=== PATIENT | male | born 1945 | race Caucasian/White ===

== ENCOUNTER 2016-10-28 11:56 | Emergency (ER) | payer MEDICARE, BC ==
[2016-10-28 14:05] LABS: Hematocrit 33.7 % (42.0-52.0); Hemoglobin 11.6 gm/dL (13.5-18.0); Mean Cell Volume 91.8 fl (78-100); Mean Corpuscular Hemoglobin 31.6 pg (27-31); Mean Corpuscular Hgb Conc 34.4 g/dl (32-36); Mean Platelet Volume 9.9 fl (6.0-9.5); Neutrophil # 16.8 K/mm3 (1.3-6.0); Neutrophil % 85.4 % (42-75.0); Platelet Count 289 K/mm3 (150-450); Red Blood Count 3.67 M/mm3 (4.7-6.0); White Blood Count 19.7 K/mm3 (4.0-10.5)
[2016-10-28 14:24] LABS: Albumin * 3.4 gm/dl (3.4-5.0); Anion Gap 9.2 mmol/L (6.8-13.8); BUN/Creatinine Ratio 28.9 (9.0-21.6); Bilirubin, Total 0.4 mg/dL (0.0-1.1); Ca. Corrected For Albumin 8.9 mg/dL (8.4-10.2); Calcium * 8.7 mg/dL (7.9-10.9); Carbon Dioxide 32.1 mmol/L (24-32.6); Potassium 4.3 mmol/L (3.4-4.6); Total Protein 6.4 gm/dL (6.2-8.2); Troponin I 0.02 ng/ml (0.00-0.10)
[2016-10-28] MEDS ORDERED: NORMAL SALINE 1,000 ML IV ONE (14:24)
--- NOTE | 2016-10-28 14:26 | ERNOTE ---
Syncope ER HPI Date of Service: 10/28/16 Stated Complaint: DIZZINESS, FALL Time Seen by Provider: 10/28/16 13:46 Source: patient, family Exam Limitations: no limitations Immunizations: IMMUNIZATION HX History of Influenza Vaccine Yes Hx Pneumococcal Vaccination Yes Allergies/Adverse Reactions: Allergies roflumilast [From Dalires] Allergy (Severe, Verified 10/28/16 12:22) Home Medications: HOME MEDICATIONS Aspirin [Aspirin Chewable] 81 mg PO DAILY 04/05/13 [Last Taken Unknown] Calcium Carbonate [Tums] 500 mg PO BID 04/05/13 [Last Taken Unknown] Carvedilol [Coreg] 12.5 mg PO BID 04/05/13 [Last Taken Unknown] Fluticasone/Salmeterol [Advair 500-50 Diskus] 1 each IH BID 04/05/13 [Last Taken Unknown] Folic Acid 1 mg PO DAILY 04/05/13 [Last Taken Unknown] Furosemide [Lasix] 40 mg PO DAILY 04/05/13 [Last Taken Unknown] Lisinopril [Zestril] 5 mg PO DAILY 04/05/13 [Last Taken Unknown] Spironolactone [Aldactone] 12.5 mg PO BID@0900,1700 04/05/13 [Last Taken Unknown ] Tiotropium Paulina [Spiriva] 18 mcg IH DAILY 04/05/13 [Last Taken Unknown] Vitamin D2 1.25 mg PO Q7D 04/05/13 [Last Taken Unknown] Cefuroxime Axetil [Ceftin] 500 mg PO BID 10/28/16 [Last Taken Unknown] Dicyclomine HCl [Bentyl] 20 mg PO QID 10/28/16 [Last Taken Unknown] HYDROcodone/ACETAMINOPHEN [Eastern 5-325] 1 - 2 tab PO QID PRN 10/28/16 [Last Taken Unknown] Varenicline Tartrate [Chantix] 1 mg PO BID 10/28/16 [Last Taken Unknown] predniSONE [Prednisone] 1.5 tab PO BID 10/28/16 [Last Taken Unknown] - History of Present Illness Narrative: Went out to his mailbox today. When he got there, developed a balance coordination problem, more like things moving around than anything else. Lasted about a minute. He went to the ground. On the ground, it didn't bother him. He stayed down for about 15 minutes, hoping it wouldn't come back. No problem before or since. No tinnitus. No hearing loss. Prior Episodes: Present: no prior history, single episode today Symptoms prior to episode: Present: none Activity at time of episode: Present: standing Character of event: Present: no loss of consciousness Location of Injury: Present: none Current Symptoms: Present: back to normal Prior Treament: Reports: recently seen, treated by physician, currently on antibiotics Review of Systems - Review of Systems Constitutional: Present: no symptoms reported EYE: Present: no symptoms reported ENT: Present: no symptoms reported Respiratory: Present: no symptoms reported Cardiology: Present: no symptoms reported Gastrointestinal/Abdominal: Present: no symptoms reported Genitourinary: Present: no symptoms reported Musculoskeletal: Present: no symptoms reported Skin: Present: no symptoms reported Neurological: Present: dizziness/light-headedness Endocrine: Present: no symptoms reported Hematologic/Lymphatic: Present: no symptoms reported Psych: Present: no symptoms reported All Other Systems: All systems neg except as marked - Patient's Past Medical History Patient History - Medical: No pertinent hx Patient History - Cardiac/Respiratory: Bronchitis, Cardiomyopathy, CHF, COPD Patient History - Cancer: No Hx of Cancer Patient History - Surgical Procedures: Appendectomy, Other - Social History Smoking Status: Former smoker Have you smoked in the past 12 months: Yes - Immunizations Hx Pneumococcal Vaccination: Yes History of Influenza Vaccine: Yes Physical Exam - Physical Exam General Appearance: Present: wd/wn, alert, no apparent distress Eye Exam: Normal inspection: bilateral, PERRL: bilateral, EOMI: bilateral Ears, Nose, Throat: Present: normal ENT inspection, hearing grossly normal, cerumen impaction - bilateral Neck: Present: normal inspection, nontender Respiratory: Present: lungs clear, decreased breath sounds Cardiovascular/Chest: Present: regular rate, rhythm, no murmur Gastrointestinal/Abdominal: Present: normal bowel sounds, nontender, nondistended, soft, no organomegaly Back Exam: Present: normal inspection, no CVA tenderness, no vertebral tenderness Extremity Exam: Present: normal inspection, no edema Skin Exam: Present: normal color, warm/dry ED Progress - Results and Orders Patient's Lab Results:: I have reviewed the patient's lab results. - Vital Signs Patient's Vital Signs:: I have reviewed the patient's vital signs. Vital Signs: Vital Signs 10/28/16 10/28/16 10/28/16 12:17 14:16 14:21 Temperature 34.9 C L Pulse Rate 53 L 60 56 L Respiratory 14 Rate Blood Pressure 120/63 88/47 O2 Sat by Pulse 95 Oximetry - EKG EKG read: Interp. by me - sinus bradycardia, intraventricular conduction delay, poor anterior r waves. 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 - Progress/Reassessment Chief Complaint: Syncopal Episode Progress Note-Subjective: 10/28/16 16:55 wbc elevated due to the steroids he's taking for his COPD exacerbation Departure Clinical Impression: Vertigo Hypotension Qualifiers: Hypotension type: other hypotension type Qualified Code(s): I95.89 - Other hypotension - Departure Disposition: Home self-care Condition: Good Instructions: Vertigo, [id number] Additional Instructions: keep your followup appt with me. Referrals: Dequan Rivera MD [Primary Care Provider] -
--- OUTSIDE RECORDS SUMMARY | 2016-10-28 15:07 | XMS REPORT | Continuity of Care Document ---
:1945 Author Organization [email or web address] [place] [address] Care Team Providers Name Role Phone Unavailable Primary Care Provider Unavailable Source Comments This disclosure is being made pursuant to the ShopReply program and maynot contain all information available regarding this patient.[email or web address] Active Allergies and Adverse Reactions Not on File Current Medications Be aware that medications may not be up to date as of this document. Alwaysverify current medications with the patient. Not on file Active Problems Not on file Social History Tobacco Use Types Packs/Day Years Used Date Never Assessed Plan of Care Health Maintenance Due Date Last Done Comments Retired-Pertussis Vaccine Adult 1964 Retired-Tetanus Vaccine Adult 1964 Colonoscopy 1994 Well Adult Visit 1994 Zoster Vaccine 60+ 2004 Retired-Pneumococcal 23 Vaccine-65+ yo 2009 Retired-INFLUENZA VACCINE 05/10/2015 Results from Last 3 Months Not on file
--- OUTSIDE RECORDS SUMMARY | 2016-10-28 15:07 | XMS REPORT | Continuity of Care Document ---
:1945 Author Organization [facility] ([facility]) Address [address] [place] [address] Phone [phone] Care Team Providers Name Role Phone Dequan Fields Primary Care Provider [phone] Source Comments This disclosure is being made pursuant to the Care Everywhere program, applicable federal and state laws, and may not contain all informaitonavailable regarding this patient.[facility] ([facility]) Active Allergies and Adverse Reactions Allergen Noted Date Severity Reactions Comments Roflumilast 03/22/2015 Unknown Current Medications Prescription Sig. Disp. Refills Start Date End Date Status tiotropium (SPIRIVA 18 mcg daily. Active WITH HANDIHALER) 18 mcg inhalation capsule MULTIVITAMINS take 1 Tab by mouth Active (MULTIVITAMIN PO) daily. folic acid 1 mg tablet Take 1 mg by mouth 03/10/2015 Active daily LISINOPRIL 5 mg tablet Take 5 mg by mouth 03/10/2015 Active daily SPIRONOLACTONE 25 mg Take 25 mg by mouth 03/10/2015 Active tablet daily carvedilol 12.5 mg Take 12.5 mg by mouth Active tablet 2 times daily with meals pantoprazole 40 mg EC Take 40 mg by mouth 11 09/07/2015 Active tablet daily. furosemide 40 mg Take 80 mg by mouth 11 09/07/2015 Active tablet daily. VITAMIN D2 50,000 unit 11 09/07/2015 Active capsule SYMBICORT 160-4.5 11 09/07/2015 Active mcg/Actuation inhaler atorvastatin 40 mg 40 mg daily. 11 09/07/2015 Active tablet PROAIR HFA 90 0 07/06/2015 Active mcg/Actuation inhaler HYDROcodone-acetaminop Take 1-2 tablets by 07/07/2015 Active hen 5-325 mg per mouth 4 times daily as tablet needed. polyethylene glycol 08/02/2015 Active 3350 (MIRALAX) 17 gram/dose powder aspirin PO Take 81 mg by mouth. Active albuterol-ipratropium Use 3 mL by inhalation Active 2.5-0.5 mg/3 mL every 4 hours as inhalation solution needed. EPINEPHrine (EPI-PEN) Inject 0.3 mg Active 0.3 mg/0.3 mL intramuscularly once injection syringe as needed. Active Problems Problem Noted Date H/O alcoholic cardiomyopathy Overview: Formatting of this note may be different from the original. CARDIOVASCULAR PROCEDURES EXCAVATOR OPERATOR: Cath (1. Dilated Cardiomyopathy secondary to ETOH abuse 2. Normal coronary arteriography. 3. Normal RHP ) - 03/21/2011 ECHO/MUGA: Echo (The left ventricle is severely dilated. Ejection Fraction=15-20%. There is severe global hypokinesis of the left ventricle. There is mild mitral regurgitation. Trace aortic regurgitation. ) - 03/21/2011 ECHO Echo (EF.40, Normal Valves) - 08/14/2011 COPD (chronic obstructive pulmonary disease) Hyperlipidemia Resolved Problems Problem Noted Date Resolved Date Shortness of breath 10/27/2007 03/19/2015 Swelling, mass, or lump in chest 07/21/2007 03/19/2015 Most Recent Encounters Date Type Specialty Providers Description 08/24/2016 Telephone Cardiac Rehabilitation Gabriela Neil MD Chief Comp: Medication Question Social History Tobacco Use Types Packs/Day Years Used Date Current Every Day Smoker Cigarettes 1.5 60 Tobacco Cessation:Ready to Quit: No; Counseling Given: Yes Comments: Alcohol Use Drinks/Week oz/Week Comments No Former alcoholic. Last Filed Vital Signs Vital Sign Reading Time Taken Blood Pressure 92/44 05/01/2016 10:39 AM CDT Pulse 62 05/01/2016 10:39 AM CDT Temperature 35.3 C (95.5 F) 04/14/2009 10:58 AM CDT Respiratory Rate 18 04/14/2009 10:58 AM CDT Height 1.956 m (6' 5.01") 05/01/2016 10:39 AM CDT Weight 73.483 kg (162 lb) 05/01/2016 10:39 AM CDT Body Mass Index 19.21 05/01/2016 10:39 AM CDT Oxygen Saturation 96% 04/14/2009 10:58 AM CDT Plan of Care Date Type Specialty Providers Description 04/30/2017 Appointment Heart and Vascular Gabriela Neil MD Chief Comp: Patient [address] [place] [address] Visit [phone] (Fax) Health Maintenance Due Date Last Done Comments Hepatitis B Vaccine (1 of 3 - Primary Series) 1945 Tdap Vaccine 1955 Lipid Disorder Screening 1962 Td Vaccine 1962 Colonoscopy 1994 Prostate Cancer Screening 1994 Zoster Vaccine 2004 Pneumococcal Vaccine (1 of 2 - PCV13) 2009 Influenza Vaccine: Seasonal (#1) 04/09/2016 Results from Last 3 Months Not on file
[2016-10-28 16:22] VITALS: BP 116/58
== END 2016-10-28 17:07 | disposition home or self-care (01) ==
LOC: ER 11:56
DX: R42 Dizziness and giddiness (principal); I95.89 Other hypotension; Z87.891 Personal history of nicotine dependence

== ENCOUNTER 2018-08-06 13:45 | Inpatient (IN) | payer BC, MEDICARE ==
[2018-08-06 15:03] LABS: Urine Bilirubin Negative (NEGATIVE); Urine Blood Negative /ul (NEGATIVE); Urine Ketone Negative (NEGATIVE); Urine Nitrite Negative (NEGATIVE); Urine Protein Negative (NEGATIVE); Urine Urobilinogen Normal (NORMAL); Urine pH 7.5 pH (5.0-7.0)
[2018-08-06 15:12] LABS: Urine Appearance Slightly Cloudy (CLEAR); Urine Bacteria 2+; Urine Color Yellow; Urine RBC None Seen /hpf (0-5)
[2018-08-06] MEDS ORDERED: NORMAL SALINE 1,000 ML IV SCH ×2 (17:00)
--- NOTE | 2018-08-06 17:14 | HP ---
Chief Complaint - Chief Complaint Date of Service: 08/06/18 Time of Service: 17:12 Chief Complaint: weakness, chills, dysuria, L. flank pain, LLQ pain History of Present Illness: Onset of symptoms several days ago. Noticed urine is malodorous and had increased frequency and urgency. Noticed dysuria yesterday. LLQ pain started yesterday. Bowels have been more loose recently. Mo previous episodes of uti. Medical History (Last Reviewed 08/06/18 @ 17:05 by Moises Horne RN) CKD (chronic kidney disease) stage 3, GFR 30-59 ml/min (Chronic) EGFR 35 in Abdominal pain (Acute) History of diverticulitis but also has UTI (urinary tract infection) (Acute) Hammertoe of second toe of left foot (Chronic) Hypertension (Chronic) COPD (chronic obstructive pulmonary disease) (Chronic) Onset Date: ~10/05/05 Chronic heart failure (Chronic) Onset Date: ~02/26/11 Ejection Fraction 20% Asthma (Chronic) Onset Date: ~02/13/12 Anemia (Chronic) Onset Date: ~03/28/11 Cataract Onset Date: ~04/01/06 Hyperlipidemia due to dietary fat intake Onset Date: Unknown Irritable bowel syndrome Onset Date: ~03/11/18 Meningitis Onset Date: Unknown 3x Onychomycosis Onset Date: ~11/24/13 Raynauds disease Onset Date: ~01/02/12 Vitamin D deficiency Onset Date: ~11/23/13 Surgical History: Surgical History (Last Reviewed 08/06/18 @ 17:06 by Moises Horne RN) H/O cardiac catheterization Onset Date: ~03/21/11 History of inguinal hernia repair Onset Date: ~03/16/04 ; Right Inguinal hernia & Right Hydrocele Hx of appendectomy Onset Date: Unknown Hx of colonoscopy Onset Date: ~12/31/122001, 12/31/2012; Adenomatous Polyp. 2012 - hyperplastic polyp x2 Hx of hand surgery Onset Date: ~02/15/10 - had fish hook removed Hx of hydrocele Onset Date: ~03/16/04 - Right Hx of vasectomy Onset Date: ~1979 Family History: Family History (Last Reviewed 08/06/18 @ 17:07 by Moises Horne RN) Father , @ age 70 Hernia Prostate cancer Throat cancer Mother , in her 70s Myocardial infarction Hernia Sister , (2) 1 Sister @ age 40 from brain cancer 1 Sister @ age 60s from unknown cause No problems noted. Social History: Preferred Language Swedish Smoking Status Current every day smoker Abuse History No History of abuse Psych History No pertinent hx (Last Updated 08/06/18 @ 14:31 by Tan Baires DO) No Social History Section defined Review Of Systems (GEN) - Review of Systems Generalized/Overall Review: Present: Weakness, Chills, Malaise, Fatigue, Weight loss. Absent: Fever EENTM: Present: No Symptoms Reported Respiratory: Present: No Symptoms Reported Cardiac: Present: No Symptoms Reported Abdominal: Present: Abdominal Pain - LLQ. Genitourinary: Present: Burning, Urgency, Frequency, Hesitancy, Nocturia, Dysuria, Polyuria. Absent: Dribbling, Incontinent, Retention, Hematuria Musculoskeletal: Present: No Symptoms Reported Neurological: Present: No Symptoms Reported Skin: Present: Dryness, Change in Color Endocrine: Present: No Symptoms Reported Misc: All systems neg except as marked Immunizations: IMMUNIZATION HX Immunizations Up to Date Yes History of Influenza Vaccine Yes Hx Pneumococcal Vaccination Yes Allergies/Adverse Reactions: Allergies Allergy/AdvReac Type Severity Reaction Status Date / Time roflumilast [From Dalires] Allergy Severe Verified 06/04/18 12:34 cat dander Allergy Intermediate Dyspnea Verified 06/04/18 12:34 dog dander Allergy Intermediate Respiratory Verified 06/04/18 12:34 issues venom-honey bee Allergy Intermediate Dyspnea Verified 06/04/18 12:34 tree and shrub pollen Allergy Respiratory Verified 06/04/18 12:34 issues venom-wasp protein Allergy Verified 06/04/18 12:34 Home Medications: HOME MEDICATIONS Aspirin [Aspirin Chewable] 81 mg PO DAILY 04/05/13 [Last Taken Unknown] lactobacillus combination no.8 3 billion cell capsule 3,000 mmu cells PO DAILY 03/11/18 [Last Taken Unknown] varenicline 1 mg tablet 1 mg PO BID 03/11/18 [Last Taken Unknown] nystatin 100,000 unit/mL oral suspension 2 ml BC QID 30 Days #240 ml 05/28/18 [Last Taken Unknown] albuterol sulfate HFA 90 mcg/actuation aerosol inhaler 2 puff IH Q6H #18 g 06/04/18 [Last Taken Unknown] atorvastatin 40 mg tablet 40 mg PO DAILY #30 tab 06/04/18 [Last Taken Unknown] budesonide-formoterol HFA 160 mcg-4.5 mcg/actuation aerosol inhaler 2 puff IH BID #10.2 g 06/04/18 [Last Taken Unknown] carvedilol 12.5 mg tablet 12.5 mg PO BID #60 tab 06/04/18 [Last Taken Unknown] dicyclomine 20 mg tablet 20 mg PO QID #120 tab 06/04/18 [Last Taken Unknown] furosemide 40 mg tablet 40 mg PO DAILY #30 tab 06/04/18 [Last Taken Unknown] ipratropium-albuterol 0.5 mg-3 mg(2.5 mg base)/3 mL nebulization soln 3 ml IH Q8H #180 ml 06/04/18 [Last Taken Unknown] lisinopril 5 mg tablet 5 mg PO DAILY #30 tab 06/04/18 [Last Taken Unknown] nitroglycerin 0.4 mg sublingual tablet 0.4 mg SL Q5-15M PRN #30 tab 06/04/18 [Last Taken Unknown] nystatin 100,000 unit/mL oral suspension 100,000 unit PO DAILY #60 ml 06/04/18 [Last Taken Unknown] oxybutynin chloride 5 mg tablet 5 mg PO DAILY #30 tab 06/04/18 [Last Taken Unknown] pantoprazole 40 mg tablet,delayed release 40 mg PO DAILY #30 tab 06/04/18 [Last Taken Unknown] spironolactone 25 mg tablet 12.5 mg PO BID@0900,1700 #60 tab 06/04/18 [Last Taken Unknown] tiotropium bromide 18 mcg capsule with inhalation device 1 cap IH DAILY #30 inh 06/04/18 [Last Taken Unknown] albuterol sulfate HFA 90 mcg/actuation aerosol inhaler 2 puff IH Q6H PRN #8.5 g 06/11/18 [Last Taken Unknown] cholecalciferol (vitamin D3) 50,000 unit capsule 50,000 unit PO QWEEK #5 cap 06/11/18 [Last Taken Unknown] ergocalciferol (vitamin D2) 50,000 unit capsule 50,000 unit PO QWEEK #15 cap 06/11/18 [Last Taken Unknown] folic acid 1 mg tablet 1 mg PO DAILY #30 tab 06/11/18 [Last Taken Unknown] polyethylene glycol 3350 17 gram/dose oral powder 17 g PO DAILY PRN #119 g 06/11/18 [Last Taken Unknown] Exam - Exam Constitutional: Present: Alert, Oriented x3, Cooperative, Well developed, Well nourished, Thin and frail, Looks Older than stated age ENT Exam: Present: normal ENT inspection Eye Exam: bilateral eye: normal inspection, PERRL, EOMI Neck: Present: non-tender, full range of motion, supple, normal inspection, trachea midline Back Exam: Present: normal inspection, no vertebral tenderness, CVA tenderness (L) Breasts: Present: Nontender Respiratory: Present: chest non-tender, lungs clear, normal breath sounds, no respiratory distress, no accessory muscle use Cardiovascular/Chest: Present: normal peripheral pulses, regular rate, rhythm, no chest tenderness, no edema, no gallop, no JVD, no murmur, no rub Peripheral Pulses: carotid (R): 2+, carotid (L): 2+, femoral (R): 2+, femoral (L): 2+, radial (R): 2+, radial (L): 2+ Abdomen: Present: Normal bowel sounds, soft, tender - LLQ /Rectal: Present: External genitalia normal, Other - Pos. 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 Admit for Sepsis 2. Sepsis protocol 3. evaluate for pyelonephritis 4. caution with abx due to ckd - Assessment/Plan (1) Sepsis Problem: Acute (2) Acute pyelonephritis Problem: Acute (3) CKD (chronic kidney disease) stage 3, GFR 30-59 ml/min Problem: Chronic (4) Hypotension Problem: Acute Qualifiers: Hypotension type: other hypotension type Qualified Code(s): I95.89 - Other hypotension (5) Hypovolemia Problem: Acute
[2018-08-06 17:33] LABS: Hemoglobin 10.4 gm/dL (13.5-18.0); Mean Corpuscular Hemoglobin 32.2 pg (27-31); Mean Corpuscular Hgb Conc 33.5 g/dl (32-36); Mean Platelet Volume 9.6 fl (8-11.3); Neutrophil # 17.5 K/mm3 (1.3-6.0); Neutrophil % 87.1 % (42-75.0); Platelet Count 189 K/mm3 (150-450); Red Blood Count 3.23 M/mm3 (4.7-6.0); Red Cell Distribution Width 13.1 % (11.5-14.0); White Blood Count 20.1 K/mm3 (4.0-10.5)
[2018-08-06 17:47] LABS: Anion Gap 12.4 mmol/L (6.8-13.8); BUN/Creatinine Ratio 13.7 (9.0-21.6); Bilirubin, Total 0.8 mg/dL (0.0-1.1); Calcium * 8.5 mg/dL (7.9-10.9); Carbon Dioxide 26.8 mmol/L (24-32.6); Potassium 4.2 mmol/L (3.4-4.6); Total Protein 6.6 gm/dL (6.2-8.2)
[2018-08-06] MEDS: HYDROcodone/ACETAMINOPHEN 1 EACH TABLET PO PRN (21:19)
[2018-08-06] MEDS: PANTOPRAZOLE SODIUM 40 MG in NORMAL SALINE 100 ML IV SCH (21:22)
[2018-08-06] MEDS: NORMAL SALINE 1,000 ML IV PRN (22:35)
[2018-08-07] MEDS: HYDROcodone/ACETAMINOPHEN 1 EACH TABLET PO PRN ×3 (03:55→22:22)
[2018-08-07] MEDS: NORMAL SALINE 1,000 ML IV PRN ×3 (06:38→22:16)
[2018-08-07 08:59] LABS: Hematocrit 30.2 % (42.0-52.0); Mean Cell Volume 96.2 fl (78-100); Mean Corpuscular Hemoglobin 31.8 pg (27-31); Mean Corpuscular Hgb Conc 33.1 g/dl (32-36); Mean Platelet Volume 9.7 fl (8-11.3); Neutrophil % 86.2 % (42-75.0); Platelet Count 191 K/mm3 (150-450); Red Blood Count 3.14 M/mm3 (4.7-6.0); Red Cell Distribution Width 13.1 % (11.5-14.0); White Blood Count 17.4 K/mm3 (4.0-10.5)
[2018-08-07 09:07] LABS: Anion Gap 9.8 mmol/L (6.8-13.8); BUN/Creatinine Ratio 11.6 (9.0-21.6); Carbon Dioxide 25.4 mmol/L (24-32.6); Estimated Creat Clear 36.5; Potassium 4.2 mmol/L (3.4-4.6)
[2018-08-07 10:21] LABS: Urine Bilirubin Negative (NEGATIVE); Urine Blood 25 /ul (NEGATIVE); Urine Ketone Negative (NEGATIVE); Urine Protein 15 mg/dL (NEGATIVE); Urine Specific Gravity 1.015 SP.GR. (1.005-1.030); Urine Urobilinogen Normal (NORMAL); Urine pH 7.5 pH (5.0-7.0)
[2018-08-07 10:27] LABS: Urine Color Yellow; Urine Nitrite Positive (NEGATIVE)
[2018-08-07] MEDS ORDERED: NITROGLYCERIN 0.4 MG/TAB BTL SL PRN (10:27)
[2018-08-07] MEDS ORDERED: ALBUTEROL SULFATE 2.5 MG/0.5 ML VIAL.NEB IH PRN (10:27)
[2018-08-07 10:28] LABS: Urine Appearance Slightly Cloudy (CLEAR)
[2018-08-07 10:29] LABS: Urine Bacteria 3+; Urine Fine Granular Cast 0-5 /LPF; Urine RBC 0-5 /hpf (0-5)
[2018-08-07] MEDS ORDERED: ALBUTEROL SULFATE/IPRATROPIUM 3 ML NEBU IH SCH (11:00)
[2018-08-07] MEDS: LACTOBACILLUS ACIDOPHILUS 100 CAP BTL PO SCH (11:00)
[2018-08-07] MEDS: ALBUTEROL SULFATE/IPRATROPIUM 3 ML NEBU IH SCH ×2 (11:06→14:23)
[2018-08-07] MEDS: DICYCLOMINE HCL 20 MG TABLET PO SCH ×3 (13:17→22:42)
[2018-08-07] MEDS: NYSTATIN 60 ML BTL PO SCH ×3 (13:17→22:42)
[2018-08-07] MEDS: PANTOPRAZOLE SODIUM 40 MG in NORMAL SALINE 100 ML IV SCH (22:10)
[2018-08-07] MEDS: SULFAMETHOXAZOLE/TRIMETHOPRIM 1 TAB TABLET PO SCH (22:42)
[2018-08-08] MEDS: ALBUTEROL SULFATE/IPRATROPIUM 3 ML NEBU IH SCH ×3 (00:20→06:13)
[2018-08-08] MEDS: HYDROcodone/ACETAMINOPHEN 1 EACH TABLET PO PRN (04:36)
[2018-08-08] MEDS: NORMAL SALINE 1,000 ML IV PRN (06:59)
--- NOTE | 2018-08-08 08:05 | CONS ---
HPI - General Date of Service: 08/08/18 Narrative: 73 yo male who I am consulted on for urinary retention and recurrent UTI. Hx of Ecoli UTI in 2016. He tends to dribble but not overly bothered until recently. Became sick and likely has sepsis. Catheterized with drainage of 4 L and a catheter has been placed since yesterday. No prior prostate surgery or meds. He has Klebsiella in the urine currently. No upper tract imaging. His Creat was 2.48 on admission but has improved to 2.24. No family hx of urological problems. Source: patient Exam Limitations: no limitations - History of Present Illness Allergies/Adverse Reactions: Allergies roflumilast [From Daliresp] Allergy (Severe, Verified 06/04/18 12:34) cat dander Allergy (Intermediate, Verified 06/04/18 12:34) Dyspnea dog dander Allergy (Intermediate, Verified 06/04/18 12:34) Respiratory issues venom-honey bee Allergy (Intermediate, Verified 06/04/18 12:34) Dyspnea tree and shrub pollen Allergy (Verified 06/04/18 12:34) Respiratory issues venom-wasp protein Allergy (Verified 06/04/18 12:34) Home Medications: Home Medications Medication Instructions Recorded Last Taken RX: Aspirin [Aspirin Chewable] 81 mg PO DAILY 04/05/13 Unknown lactobacillus combination no.8 3 3,000 mmu cells PO DAILY 03/11/18 Unknown billion cell capsule nystatin 100,000 unit/mL oral 2 ml BC QID 30 Days #240 ml 05/28/18 Unknown suspension atorvastatin 40 mg tablet 40 mg PO DAILY #30 tab 06/04/18 Unknown dicyclomine 20 mg tablet 20 mg PO QID #120 tab 06/04/18 Unknown ipratropium-albuterol 0.5 mg-3 3 ml IH Q8H #180 ml 06/04/18 Unknown mg(2.5 mg base)/3 mL nebulization soln nitroglycerin 0.4 mg sublingual 0.4 mg SL Q5-15M PRN #30 tab 06/04/18 Unknown tablet pantoprazole 40 mg tablet,delayed 40 mg PO DAILY #30 tab 06/04/18 Unknown release tiotropium bromide 18 mcg capsule 1 cap IH DAILY #30 inh 06/04/18 Unknown with inhalation device ergocalciferol (vitamin D2) 50,000 50,000 unit PO QWEEK #15 cap 06/11/18 Unknown unit capsule folic acid 1 mg tablet 1 mg PO DAILY #30 tab 06/11/18 Unknown polyethylene glycol 3350 17 17 g PO DAILY PRN #119 g 06/11/18 Unknown gram/dose oral powder RX: Albuterol Sulfate [Proair Hfa] 2 puff IH Q6H PRN 08/07/18 Unknown RX: Albuterol Sulfate [Proventil 2 puff IH Q6H PRN 08/07/18 Unknown Hfa] RX: Folic Acid 1 mg PO DAILY 08/07/18 Unknown RX: Finasteride [Proscar] 5 mg PO DAILY tablet 08/08/18 Unknown RX: Sulfamethoxazole/Trimethoprim 1 tab PO BID #20 tablet 08/08/18 Unknown [Bactrim Ds] Sulfamethoxazole/Trimethoprim 1 tab PO BID #20 tab 08/08/18 Unknown [Bactrim Ds] Procedures Closure of skin and subcutaneous tissue of other sites (04/01/04) Excision of hydrocele (of tunica vaginalis) (03/16/04) Insertion of intraocular lens prosthesis at time of cataract extraction, one- stage (01/01/06) Phacoemulsification and aspiration of cataract (01/01/06) Removal of foreign body, not otherwise specified (03/09/03) TENOTOMY OF HAND (02/15/10) Medications - Medications Current Medications: Current Medications Hydrocodone Bitart/Acetaminophen ([place] 5-325) 1 each PO Q6H PRN PRN Reason: Pain Stop: 09/05/18 20:30 Last Admin: 08/08/18 04:36 Dose: 1 each Albuterol/Ipratropium (Duoneb 2.5-0.5mg/3ml Soln) 3 ml IH Q8H JESSICA Stop: 09/06/18 07:01 Last Admin: 08/08/18 06:13 Dose: 3 ml Dicyclomine HCl (Bentyl) 20 mg PO QID JESSICA Stop: 09/06/18 13:01 Last Admin: 08/07/18 22:42 Dose: 20 mg Pantoprazole Sodium 40 mg/ (Sodium Chloride) 100 mls @ 400 mls/hr IV Q24H JESSICA Stop: 09/05/18 20:01 Last Infusion: 08/07/18 22:45 Dose: Infused Sodium Chloride (Sodium Chloride 0.9%) 1,000 mls @ 125 mls/hr IV .Q8H PRN PRN Reason: HYDRATION Stop: 09/05/18 16:51 Last Admin: 08/08/18 06:59 Dose: 125 mls/hr Ceftriaxone Sodium 1,000 mg/ (Dextrose/Water) 100 mls @ 200 mls/hr IV Q24H [facility]; Protocol Stop: 09/05/18 20:01 Last Infusion: 08/07/18 22:55 Dose: Infused Lactobacillus Acidophilus (Bacid) 1 cap PO DAILY [facility] Stop: 09/06/18 10:46 Last Admin: 08/07/18 11:00 Dose: Not Given Nystatin (Mycostatin 100 Mu/Ml Suspension) 2 ml PO QID [facility] Stop: 09/06/18 13:01 Last Admin: 08/07/18 22:42 Dose: 2 ml Trimethoprim/Sulfamethoxazole (Bactrim Ds) 1 tab PO BID [facility]; Protocol Stop: 09/06/18 21:01 Last Admin: 08/07/18 22:42 Dose: 1 tab Review of Systems - Review of Systems Generalized/Overall Review: Present: Weakness EENTM: Present: No Symptoms Reported Respiratory: Present: No Symptoms Reported Cardiac: Present: No Symptoms Reported Abdominal: Present: No Symptoms Reported Genitourinary: Present: Dribbling Musculoskeletal: Present: No Symptoms Reported Neurological: Present: No Symptoms Reported Skin: Present: No Symptoms Reported Endocrine: Present: No Symptoms Reported Physical Examination - Exam Vital Signs: Vital Signs - Last Taken Temp 98.8 F 08/08/18 03:55 Pulse 80 08/08/18 06:23 Resp 18 08/08/18 06:23 BP 94/46 08/08/18 03:55 Pulse Ox 94 08/08/18 06:13 O2 Oxygen Delivery Method Room Air Constitutional: Present: Alert, Oriented x3, Cooperative, Well developed ENT Exam: Present: hearing grossly normal Respiratory: Present: lungs clear Cardiovascular/Chest: Present: normal peripheral pulses, regular rate, rhythm Abdomen: Present: soft, nontender /Rectal: Present: Other - Catheter in place draining concentrated urine Skin Exam: Present: normal color, warm/dry Neurologic: Present: no motor/sensory deficits, normal mood/affect Eye contact: Present: cooperative - Results and Findings: Narrative: Urinary retention-keep Sosa in place for the time being. Will need a TURP to help improve emptying. However, did explain that when the bladder is overstretched emptying may never be normal and may need long-term catheterizati on/CIC. UTI-will need treatment until medically stabilized ARF-should improve with Sosa drainage. Would like to get JULIANE today to assess for hydronephrosis. If he does have hydronephrosis would recommend stone protocol CT scan to make sure no stone disease contributing to ARF. Lab/Microbiology results last 24 hrs: Abnormal/Pending Laboratory Last 24 HRS 08/07/18 08/07/18 08/07/18 10:10 08:53 08:39 WBC 17.4 H RBC 3.14 L Hgb 10.0 L Hct 30.2 L MCH 31.8 H Immature Gran % (Auto) 2.00 H Immature Gran # (Auto) 0.35 H Neutrophils % 86.2 H Lymphocytes % 4.2 L Neutrophils # 15.0 H Lymphocytes # 0.73 L Monocytes # 1.3 H BUN 26 H Creatinine 2.24 H Est GFR (Non-Af Amer) 31 L Random Glucose 146 H Urine Protein 15 H Urine Blood 25 H Urine Nitrate Positive H Ur Leukocyte Esterase 100 H Urine WBC 10-25 H Urine Bacteria 3+ H Fine Granular Casts 0-5 H
[2018-08-08] MEDS: LACTOBACILLUS ACIDOPHILUS 100 CAP BTL PO SCH (08:28)
[2018-08-08] MEDS: SULFAMETHOXAZOLE/TRIMETHOPRIM 1 TAB TABLET PO SCH (08:29)
[2018-08-08] MEDS: NYSTATIN 60 ML BTL PO SCH (08:29)
[2018-08-08] MEDS: DICYCLOMINE HCL 20 MG TABLET PO SCH (08:29)
[2018-08-08] MEDS ORDERED: FINASTERIDE 5 MG TABLET PO SCH (09:00)
[2018-08-08] MEDS ORDERED: ASPIRIN 81 MG TAB.CHEW PO SCH (09:00)
[2018-08-08 09:53] LABS: Hematocrit 25.9 % (42.0-52.0); Hemoglobin 8.5 gm/dL (13.5-18.0); Mean Cell Volume 96.6 fl (78-100); Mean Corpuscular Hemoglobin 31.7 pg (27-31); Mean Corpuscular Hgb Conc 32.8 g/dl (32-36); Mean Platelet Volume 9.8 fl (8-11.3); Neutrophil # 8.9 K/mm3 (1.3-6.0); Neutrophil % 76.3 % (42-75.0); Platelet Count 172 K/mm3 (150-450); Red Blood Count 2.68 M/mm3 (4.7-6.0); Red Cell Distribution Width 13.3 % (11.5-14.0); White Blood Count 11.6 K/mm3 (4.0-10.5)
[2018-08-08 10:07] LABS: Albumin * 1.8 gm/dl (3.4-5.0); BUN/Creatinine Ratio 11.8 (9.0-21.6); Bilirubin, Total 0.3 mg/dL (0.0-1.1); Ca. Corrected For Albumin 8.8 mg/dL (8.4-10.2); Calcium * 7.4 mg/dL (7.9-10.9); Carbon Dioxide 22.2 mmol/L (24-32.6); Potassium 4.2 mmol/L (3.4-4.6); Total Protein 4.9 gm/dL (6.2-8.2)
--- NOTE | 2018-08-08 10:20 | PN ---
Subjective - Date and Time Seen Date: 08/07/18 Time: 13:00 Subjective Narrative: Seth is feeling much better and especially since getting his bladder drained of 3.7 L of urine. He has stopped having shaking chills and feels warm today. He continues to have LLQ and L flank pain. Lab: WBC down to 17K. EGFR is 3.1 this morning. Lactic acid is down to normal range @ 1.7 Urine culture growing out a gm neg bacillus. Blood culture @ 24 hrs no growth. Tolerating the Rocephin OK. Objective - Review of Systems Generalized/Overall Review: Reports: Weakness, Chills - have stopped this morning., Malaise EENTM: Reports: No Symptoms Reported Respiratory: Reports: No Symptoms Reported Cardiac: Reports: No Symptoms Reported Abdominal: Reports: Abdominal Pain - LLQ Genitourinary Symptoms: Reports: Urgency, Frequency, Hesitancy, Retention, Dysuria Musculoskeletal Complaints: Reports: No Symptoms Reported Neurological: Reports: No Symptoms Reported Skin: Reports: No Symptoms Reported Endocrine: Reports: No Symptoms Reported Misc: All systems neg except as marked - Vitals Vitals: Last Vital Signs Temp 37.1 C 08/08/18 03:55 Pulse 80 08/08/18 06:23 Resp 18 08/08/18 06:23 BP 94/46 08/08/18 03:55 Pulse Ox 94 08/08/18 06:13 - Abnormal Lab Findings Abnormal Lab Findings: Abnormal Lab Results 08/06/18 08/07/18 08/08/18 Range/Units 14:46 10:10 09:46 WBC 11.6 H D (4.0-10.5) K/mm3 RBC 2.68 L (4.7-6.0) M/mm3 Hgb 8.5 L (13.5-18.0) gm/dL Hct 25.9 L (42.0-52.0) % MCH 31.7 H (27-31) pg Immature Gran % (Auto) 0.90 H (0.001-0.429) % Immature Gran # (Auto) 0.11 H (0.000-0.0310) K/mm3 Neutrophils % 76.3 H (42-75.0) % Lymphocytes % 10.2 L (20-51) % Monocytes % 12.0 H (0.0-9) % Neutrophils # 8.9 H (1.3-6.0) K/mm3 Lymphocytes # 1.18 L (1.5-3.5) k/mm3 Monocytes # 1.4 H (0.0-1.0) k/mm3 Urine Protein 15 H (NEGATIVE) mg/dL Urine Blood 25 H (NEGATIVE) /ul Urine Nitrate Positive H (NEGATIVE) Ur Leukocyte Esterase 75 H 100 H (NEGATIVE) /ul Urine WBC 5-10 H 10-25 H (0-5) /hpf Urine Bacteria 2+ H 3+ H (NONE) Fine Granular Casts 0-5 H (NONE) /LPF - Exam Constitutional: Present: Alert, Oriented x3, Cooperative, Well developed, Well nourished, Elderly, Thin and frail ENT Exam: Present: normal ENT inspection, hearing grossly normal, pharynx normal Neck: Present: non-tender, full range of motion, supple, normal inspection Breasts: Present: Exam deferred Respiratory: Present: chest non-tender, lungs clear, normal breath sounds, no respiratory distress, no accessory muscle use Cardiovascular/Chest: Present: normal peripheral pulses, regular rate, rhythm, no chest tenderness, no edema, no gallop, no JVD, no murmur, no rub Abdomen: Present: Normal bowel sounds, soft, tender - LLQ, CVA tenderness, suprapubic tenderness, distended - urinary bladder. /Rectal: Present: Exam deferred Extremity: Present: normal range of motion, non-tender, normal inspection, no pedal edema, no calf tenderness, normal capillary refill Skin Exam: Present: warm/dry, no cyanosis, pallor - but improved since yesterday. Lymphatic: Present: no adenopathy Neurologic: Present: web services professional II-XII nml as tested Appearance: Present: appropriate appearance Eye contact: Present: cooperative Thoughts: Present: normal thought pattern Cauti Physician Documentation - Urinary Catheter Management Urethral (Wilkerson) Urethral Indwelling: Yes Reason for Continuing Indwelling Catheter: Obstruction/Retention Date of Insertion: 08/07/18 Time of Insertion: 17:24 Assessment/Plan Plan Narrative: 1. Leave wilkerson cath to dep. drainage. 2. Urology consult tomorrow with Dr. Thurman. 3. Continue IV fluids and IV Rocephin - Problems/Diagnosis (1) Sepsis Problem: Acute Qualifiers: Sepsis type: sepsis due to unspecified organism Qualified Code(s): A41.9 - Sepsis, unspecified organism Narrative: It is a gram neg. bacillis (2) Acute pyelonephritis Problem: Acute (3) CKD (chronic kidney disease) stage 3, GFR 30-59 ml/min Problem: Chronic (4) Hypotension Problem: Acute Qualifiers: Hypotension type: hypotension due to hypovolemia Qualified Code(s): I95.89 - Other hypotension; E86.1 - Hypovolemia (5) Hypovolemia Problem: Acute (6) Bladder outlet obstruction Problem: Acute Narrative: Acute on chronic.
--- NOTE | 2018-08-08 11:12 | DS ---
(1) Sepsis Problem: Resolved Qualifiers: Sepsis type: sepsis due to unspecified organism Qualified Code(s): A41.9 - Sepsis, unspecified organism (2) Acute pyelonephritis Problem: Acute (3) CKD (chronic kidney disease) stage 3, GFR 30-59 ml/min Problem: Chronic (4) Hypotension Problem: Resolved Qualifiers: Hypotension type: hypotension due to hypovolemia Qualified Code(s): I95.89 - Other hypotension; E86.1 - Hypovolemia (5) Hypovolemia Problem: Resolved (6) Bladder outlet obstruction Problem: Chronic Description of Stay: Seth Lynch is a 73 yo. wh. male who presented to my office with c/o of LLQ and L CVA pain, shaking chills without known fever. He was hypotensive @ 80/40 and having episodes of orhtostasis. Out pt. lab was ordered and came back consistant with sepsis, elevated lactic acid, procalcitonin, wbc 20K+ with a predominence of neutrophils, an EGFR of 22 (down from a baseline of 36), a strong malodorous urine with pos nitrites, leukocyte esterase, and lg. amount of bacteria. I called the pt to come to the hospital to be admitted for Sepsis. I arranged a direct admit. IV was establised and he received 2 L NS initially and then continued at 125 cc/hr. Rocephin was chosen because of his renal status. His pressure improved with volume replacment but he developed severe suprapubic pain and was found to have a distended urinary bladder 3.7 L was drained by straight cath. He again started to have urinary retention so a wilkerson cath was placed to DD. He is much more comfortable. His shaking chills have ceased. H continues to have L-CVA pain and LLQ pain from the pyelonephritis and uti. The urine culture is growing out Kebsiella Pn. 48 hr Blood cultures are not yet available. I called Dr. Thurman for a urology consult and he graciously agreed to see Mr. Lynch this morning. He believes he will need a TURP after recovering from this Sepsis event. He will be discharged to [facility] with the wilkerson inplace and provided a drainage bag for bedtime use and a leg bag for when he is up and around. He will be sent home on Bactrim DS bid for 10 days. Procedures Performed: see notes below List Procedures: Straight cath and then placement of wilkerson cath to dep. garcia Results and Findings: Pending Mircobiology Results 08/06/18 15:00 Blood Blood Culture - Preliminary NO GROWTH 24 HOURS Lab Pending Results 08/06/18 14:46: Urine Color Yellow, Urine Appearance Slightly cloudy, Urine pH 7.5, Ur Specific [place] 1.020, Urine Protein Negative, Urine Glucose (UA) Negative, Urine Ketones Negative, Urine Blood Negative, Urine Nitrate Negative, Urine Bilirubin Negative, Urine Urobilinogen Normal, Ur Leukocyte Esterase 75 H, Urine RBC None seen, Urine WBC 5-10 H, Ur Epithelial Cells None seen, Urine Bacteria 2+ H 08/06/18 17:33: WBC 20.1 H, RBC 3.23 L, Hgb 10.4 L, Hct 31.0 L, MCV 96.0, MCH 32.2 H, MCHC 33.5, RDW 13.1, Plt Count 189, MPV 9.6, Immature Gran % (Auto) 1.30 H, Immature Gran # (Auto) 0.26 H, Neutrophils % 87.1 H, Lymphocytes % 4.3 L, Monocytes % 7.2, Eosinophils % 0.0, Basophils % 0.1, Nucleated RBC % 0.0, Neutrophils # 17.5 H, Lymphocytes # 0.86 L, Monocytes # 1.5 H, Eosinophils # 0.0, Absolute Basophils 0.0 08/06/18 17:33: Sodium 133, Plasma Sodium 133, Potassium 4.2, Chloride 98, Carbon Dioxide 26.8, Anion Gap 12.4, BUN 34 H, Creatinine 2.48 H, Est GFR (Non- Af Amer) 27 L, BUN/Creatinine Ratio 13.7, Random Glucose 131 H, Calcium 8.5, Calcium Adj for Albumin 9.0, Total Bilirubin 0.8, AST 16, ALT 17 L, Alkaline Phosphatase 84, Total Protein 6.6, Albumin 3.0 L 08/06/18 17:33: Procalcitonin 4.11 H 08/06/18 17:33: Lactic Acid, Venous 1.3 08/07/18 08:39: Sodium 135, Plasma Sodium 136, Potassium 4.2, Chloride 104, Carbon Dioxide 25.4, Anion Gap 9.8, BUN 26 H, Creatinine 2.24 H, Est GFR (Non-Af Amer) 31 L, BUN/Creatinine Ratio 11.6, Random Glucose 146 H, Calcium 8.0 08/07/18 08:53: WBC 17.4 H, RBC 3.14 L, Hgb 10.0 L, Hct 30.2 L, MCV 96.2, MCH 31.8 H, MCHC 33.1, RDW 13.1, Plt Count 191, MPV 9.7, Immature Gran % (Auto) 2.00 H, Immature Gran # (Auto) 0.35 H, Neutrophils % 86.2 H, Lymphocytes % 4.2 L, Monocytes % 7.4, Eosinophils % 0.0, Basophils % 0.2, Nucleated RBC % 0.0, Neutrophils # 15.0 H, Lymphocytes # 0.73 L, Monocytes # 1.3 H, Eosinophils # 0.0, Absolute Basophils 0.0 08/07/18 10:10: Urine Color Yellow, Urine Appearance Slightly cloudy, Urine pH 7.5, Ur Specific [place] 1.015, Urine Protein 15 H, Urine Glucose (UA) Negative, Urine Ketones Negative, Urine Blood 25 H, Urine Nitrate Positive H, Urine Bilirubin Negative, Prot Sulfosalicylic Acd Negative, Urine Urobilinogen Normal, Ur Leukocyte Esterase 100 H, Urine RBC 0-5, Urine WBC 10-25 H, Ur Epithelial Cells None seen, Urine Bacteria 3+ H, Fine Granular Casts 0-5 H 08/08/18 09:46: WBC 11.6 H D, RBC 2.68 L, Hgb 8.5 L, Hct 25.9 L, MCV 96.6, MCH 31.7 H, MCHC 32.8, RDW 13.3, Plt Count 172, MPV 9.8, Immature Gran % (Auto) 0.90 H, Immature Gran # (Auto) 0.11 H, Neutrophils % 76.3 H, Lymphocytes % 10.2 L, Monocytes % 12.0 H, Eosinophils % 0.3, Basophils % 0.3, Nucleated RBC % 0.0, Neutrophils # 8.9 H, Lymphocytes # 1.18 L, Monocytes # 1.4 H, Eosinophils # 0.0, Absolute Basophils 0.0 08/08/18 09:46: Sodium 134, Plasma Sodium 134, Potassium 4.2, Chloride 105, Carbon Dioxide 22.2 L, Anion Gap 11.0, BUN 21, Creatinine 1.78 H D, Est GFR (Non-Af Amer) 40 L D, BUN/Creatinine Ratio 11.8, Random Glucose 115 H, Calcium 7.4 L, Calcium Adj for Albumin 8.8, Total Bilirubin 0.3, AST 13, ALT 14 L, Alkaline Phosphatase 96, Total Protein 4.9 L, Albumin 1.8 L Discharge Location: Home Disposition: Home self-care Condition: Fair Face to Face Encounter completed per [facility] Guidelines: No Discharge Activity: Activity as tolerated Discharge Diet: General/regular food Referrals: Tan Baires DO [Primary Care Provider] - Consultation Done:: Dr. Joss Thurman MD Additional Patient Instructions (free text): Use the regular drainage bag at bedtime or when lying down. Use the leg bag when up and around. Please instruct pt and on proper use of bags and how to change from one bag to the other. Schedule an appt to see me in 1 week in the office and to see Dr. Thurman in 2 weeks in his office. Instruct the pt. to weigh daily and record the weights and bring them with them to his office appt. -Please make TCM appointment unless skilled nursing discharge. Thank you! Kristen @ [phone]. Prescriptions (Any new or edited meds): Sulfamethoxazole/Trimethoprim [Bactrim Ds] 1 tab PO BID #20 tab Sulfamethoxazole/Trimethoprim [Bactrim Ds] 1 tab PO BID #20 tablet Complete Home Medications List: Complete Home Medication List: Aspirin [Aspirin Chewable] 81 mg PO DAILY 04/05/13 lactobacillus combination no.8 3 billion cell capsule 3,000 mmu cells PO DAILY 03/11/18 nystatin 100,000 unit/mL oral suspension 2 ml BC QID 30 Days #240 ml 05/28/18 atorvastatin 40 mg tablet 40 mg PO DAILY #30 tab 06/04/18 dicyclomine 20 mg tablet 20 mg PO QID #120 tab 06/04/18 ipratropium-albuterol 0.5 mg-3 mg(2.5 mg base)/3 mL nebulization soln 3 ml IH Q8H #180 ml 06/04/18 nitroglycerin 0.4 mg sublingual tablet 0.4 mg SL Q5-15M PRN #30 tab 06/04/18 pantoprazole 40 mg tablet,delayed release 40 mg PO DAILY #30 tab 06/04/18 tiotropium bromide 18 mcg capsule with inhalation device 1 cap IH DAILY #30 inh 06/04/18 ergocalciferol (vitamin D2) 50,000 unit capsule 50,000 unit PO QWEEK #15 cap 06/11/18 folic acid 1 mg tablet 1 mg PO DAILY #30 tab 06/11/18 polyethylene glycol 3350 17 gram/dose oral powder 17 g PO DAILY PRN #119 g 06/11/18 Albuterol Sulfate [Proair Hfa] 2 puff IH Q6H PRN 08/07/18 Albuterol Sulfate [Proventil Hfa] 2 puff IH Q6H PRN 08/07/18 Folic Acid 1 mg PO DAILY 08/07/18 Finasteride [Proscar] 5 mg PO DAILY tablet 08/08/18 Sulfamethoxazole/Trimethoprim [Bactrim Ds] 1 tab PO BID #20 tab 08/08/18 Sulfamethoxazole/Trimethoprim [Bactrim Ds] 1 tab PO BID #20 tablet 08/08/18
[2018-08-08 13:02] VITALS: BP 139/54
[2018-08-09] MEDS ORDERED: LACTOBACILLUS ACIDOPHILUS 100 CAP BTL PO SCH (09:00)
== END 2018-08-08 13:09 | disposition home or self-care (01) | DRG 872 ==
LOC: CCFAL → MS 16:36
PROVIDERS: ADMIT Family Medicine; ATTEND Family Medicine
DX: R33.8 Other retention of urine; Z91.048 Other nonmedicinal substance allergy status; B96.1 Klebsiella pneumoniae [K. pneumoniae] as the cause of diseases classified elsewhere; I50.9 Heart failure, unspecified; Z79.82 Long term (current) use of aspirin; N10 Acute pyelonephritis; K58.9 Irritable bowel syndrome, unspecified; I13.0 Hypertensive heart and chronic kidney disease with heart failure and stage 1 through stage 4 chronic kidney disease, or unspecified chronic kidney disease; E78.5 Hyperlipidemia, unspecified; Z87.440 Personal history of urinary (tract) infections; I95.9 Hypotension, unspecified; Z82.49 Family history of ischemic heart disease and other diseases of the circulatory system; J44.9 Chronic obstructive pulmonary disease, unspecified; N32.0 Bladder-neck obstruction; Z91.030 Bee allergy status; E55.9 Vitamin D deficiency, unspecified; F17.200 Nicotine dependence, unspecified, uncomplicated; Z79.51 Long term (current) use of inhaled steroids; N17.9 Acute kidney failure, unspecified; N18.3 Chronic kidney disease, stage 3 (moderate); D64.9 Anemia, unspecified; Z86.010 Personal history of colon polyps; E86.1 Hypovolemia; Z88.8 Allergy status to other drugs, medicaments and biological substances; A41.9 Sepsis, unspecified organism
CPT/HCPCS: 36415; 76770; 80048; 80053; 81001; 83605; 84145; 85025; 85652; 86140; 87040; 87077; 87086; 87186; 93005; 94640; 94664; 99214